=== PATIENT | female | born 1985 | race Caucasian/White ===

== ENCOUNTER 2020-06-04 20:55 | Observation (INO) | payer MEDICAID, SELFPAY ==
[~2020-06-04] VITALS: Ht 165.1 cm; Wt 50.4 kg
[2020-06-04 21:05] VITALS: BP 115/75
[2020-06-04] MEDS ORDERED: ZOFRAN IV STA (21:10)
[2020-06-04] MEDS ORDERED: TORADOL IV STA (21:10)
[2020-06-04] MEDS ORDERED: NS 1000ML 1,000 ML IV STA (21:10)
--- NOTE | 2020-06-04 21:14 | ER.PDOC ---
General Chief Complaint: Nausea,Vomiting,Diarrhea Stated Complaint: VOMITING Time seen by MD: 21:12 Source: patient Exam Limitations: no limitations History of Present Illness Initial Comments Abdominal pain since yesterday, nausea and vomiting this afternoon. No diarrhea, fever or chills. Pain is sharp and generalized. No radiation. She rates pain at a 7 out of 10. Severity/Quality: moderate, sharpness Abdominal Pain Onset Location: Generalized Abdomen Associated Symptoms (vomiting): mild vomiting Allergies: Coded Allergies: No Known Allergies (Unverified , 06/04/20) Vital Signs First Vital Signs Date Time Temp Pulse Resp B/P (MAP) Pulse Ox O2 Delivery O2 Flow Rate FiO2 06/04/20 21:05 98.6 64 16 06/04/20 21:05 100 06/04/20 21:05 115/75 (88) Room Air Last Vital Signs Date Time Temp Pulse Resp B/P (MAP) Pulse Ox O2 Delivery O2 Flow Rate FiO2 06/04/20 22:05 98.6 62 16 136/82 (100) 100 Room Air Past Medical History Medical History: fibromyalgia Surgical History: tubal Family History Significant Family History: no pertinent family hx Social History Alcohol Use: occassionally Drug Use: marijuana Constitutional: no symptoms reported EENTM: no symptoms reported Respiratory: no symptoms reported Cardiovascular: no symptoms reported Gastrointestinal: see HPI All Other Systems: Reviewed and Negative Physical Exam General Appearance: No Apparent Distress, WD/WN Neck: Non-Tender, Full Range of Motion, Supple, Normal Inspection Respiratory: chest non-tender, lungs clear, normal breath sounds, no respiratory distress, no accessory muscle use Cardiovascular: Normal Peripheral Pulses, Regular Rate, Rhythm, No Edema, No Gallop, No JVD, No Murmur Gastrointestinal: Normal Bowel Sounds, No Organomegaly, No Pulsatile Mass, Tenderness (generalized) Back: Normal Inspection, No CVA Tenderness, No Vertebral Tenderness Extremities: Normal Range of Motion, Non-Tender, Normal Inspection, No Pedal Edema, No Calf Tenderness, Normal Capillary Refill, Pelvis Stable 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, No Motor/Sensory Deficits, Alert, Normal Mood/Affect, Oriented x 3 Skin: Normal Color, Warm/Dry Lymphatic: No Adenopathy Results/Orders Results/Orders Orders - WILFRIDO WIN MD Cbc With Auto Diff (06/04/20 21:10) Comprehensive Metabolic Panel (06/04/20 21:10) Lipase (06/04/20 21:10) Urinalysis (06/04/20 21:10) Ct Abd/Pel With Iv Contrast (06/04/20 21:10) 0.9 % Sodium Chloride (Ns 1000ml) (06/04/20 21:10) Ondansetron Hcl/Pf (Zofran) (06/04/20 21:10) Ketorolac Tromethamine (Toradol) (06/04/20 21:10) Hcg Urine (06/04/20 21:10) 0.9 % Sodium Chloride (Ns 1000ml) (06/04/20 21:18) Ondansetron Hcl/Pf (Zofran) (06/04/20 21:18) Ketorolac Tromethamine (Toradol) (06/04/20 21:18) Morphine Sulfate (Morphine Sulfate) (06/04/20 21:22) Morphine Sulfate (Morphine Sulfate) (06/04/20 21:23) PT (06/04/20 22:46) Partial Thromboplastin Time. (06/04/20 22:46) Lactic Acid(Ml) (06/04/20 22:46) Blood Culture (06/04/20 22:46) Piperacillin Sodium/Tazobactam (Zosyn 3. (06/04/20 22:49) Vital Signs Date Time Temp Pulse Resp B/P (MAP) Pulse Ox O2 Delivery O2 Flow Rate FiO2 06/04/20 22:05 98.6 62 16 136/82 (100) 100 Room Air 06/04/20 21:05 98.6 64 16 115/75 (88) 100 Room Air 06/04/20 21:05 98.6 64 16 100 06/04/20 21:05 98.6 64 16 Administered Medications Medications (Trade) Dose Ordered Sig/Rafat Route PRN Reason Start Time Stop Time Status Last Admin Dose Admin Morphine Sulfate (Morphine Sulfate) 4 mg STAT STAT IV 06/04/20 21:22 06/04/20 21:23 DC 06/04/20 21:25 4 MG Ondansetron HCl (Zofran) 4 mg STAT STAT IV 06/04/20 21:10 06/04/20 21:13 DC 06/04/20 21:21 4 MG Sodium Chloride 1,000 ml @ 1,200 mls/hr Q50M STAT IV 06/04/20 21:10 06/04/20 21:59 DC 06/04/20 21:21 1,200 MLS/HR Laboratory Tests Test 06/04/20 21:05 White Blood Count 14.9 10^3/uL (4.5-11.0) H Red Blood Count 4.61 10^6/uL (4.00-5.20) Hemoglobin 14.7 g/dL (12.0-15.0) Hematocrit 42.0 % (36.0-46.0) Mean Corpuscular Volume 91.1 fL (78-100) Mean Corpuscular Hemoglobin 31.9 pg (26-34) Mean Corpuscular Hemoglobin Concent 35.0 g/dL (33-36.5) Red Cell Distribution Width 11.6 % (11.5-14.5) Platelet Count 238 10^3/uL (150-400) Mean Platelet Volume 10.2 fL (7.8-11.0) Neutrophils (%) (Auto) 80.6 % (41.0-85.0) Lymphocytes (%) (Auto) 12.8 % (24.0-44.0) L Monocytes (%) (Auto) 5.6 % (5.0-12.0) Neutrophils # (Auto) 12.0 10^3/uL (1.8-7.7) H Lymphocytes # (Auto) 1.91 10^3/uL1 (1.0-4.8) Monocytes # (Auto) 0.8 10^3/uL (0.3-0.8) Absolute Immature Granulocyte (auto 0.01 10^3 u/L (0-2) Absolute Eosinophils (auto) 0.1 10^3/uL (0.0-0.2) Immature Granulocytes % 0.10 % (0.00-0.50) Eosinophils % 0.5 % (0.0-5.0) Basophils % 0.4 % (0.0-0.2) H Basophils # 0.1 10^3/uL (0.0-0.1) Urine Collection Type RANDOM Urine Color YELLOW Urine Appearance HAZY Urine Bilirubin NEGATIVE (NEGATIVE) Urine Ketones 15 mg/dL (NEGATIVE) H Urine Specific [place] >=1.030 (1.005-1.030) Urine pH 5.5 (4.5-8.0) Urine Protein NEGATIVE (NEGATIVE) Urine Urobilinogen 0.2 E.U./dL (0.2) Urine Nitrate NEGATIVE (NEGATIVE) Urine Leukocyte Esterase NEGATIVE (NEGATIVE) Urine Glucose (Auto)(UA) NEGATIVE (NEGATIVE) Urine Blood NEGATIVE (NEGATIVE) Urine HCG, Qualitative NEGATIVE (NEGATIVE) Sodium Level 136 mmol/L (132-145) Potassium Level 3.7 mmol/L (3.6-5.2) Chloride Level 99.0 mmol/L (96-109) Carbon Dioxide Level 24.6 mmol/L (20.0-32) Anion Gap 16.1 Blood Urea Nitrogen 15 mg/dL (7-18) Creatinine 0.93 mg/dL (0.59-1.40) Estimated GFR () 84.0 (>/=60) Est GFR (CKD-EPI)(Non-Afr [place]an) 69.4 (>/=60) BUN/Creatinine Ratio 16.0 Glucose Level 98 mg/dL (70-110) Calcium Level 8.8 mg/dL (8.4-10.5) Total Bilirubin 0.9 mg/dL (0.2-1.0) Aspartate Amino Transferase (AST) 22 U/L (0-35) Alanine Aminotransferase (ALT) 21 U/L (12-78) Alkaline Phosphatase 44 U/L (50-136) L Total Protein 8.0 g/dL (6.4-8.2) Albumin 4.4 g/dL (3.4-5.0) Globulin 3.6 Albumin/Globulin Ratio 1.222 Lipase 155 U/L (114-286) Progress Progress CT abdomen/pelvis: Appendix is mildly dilated. In the appropriate clinical situation, this is consistent with appendicitis. 2. Moderate to large amount of stool in the colon. 3. Periportal edema which is nonspecific but can be seen in hepatitis or hypoalbuminemia as well as other conditions. No evidence of obstructive lymphatics. ER DEPART Departure Time of Disposition: 22:50 Disposition: ADMITTED INPATIENT Impression: Primary Impression: Acute appendicitis Condition: Stable Referrals: PCP,UNKNOWN (PCP) PRIMARY CARE PROVIDER Comments Admitted to Dr. Domínguez, Spoke with Dr. Ross who told me to admit patient under the hospitalist and he will take out the appendix in the morning. Duration or Time Spent with Pa: 60 min Problem Qualifiers Primary Impression: Acute appendicitis Acute appendicitis type: unspecified acute appendicitis type Qualified Codes: K35.80 - Unspecified acute appendicitis QUIRINO,WILFRIDO Brownlee MD Jun 04, 2020 21:14
[2020-06-04] MEDS ORDERED: NS 1000ML 1,000 ML ONE (21:18)
[2020-06-04] MEDS ORDERED: TORADOL ONE (21:18)
[2020-06-04] MEDS ORDERED: ZOFRAN ONE (21:18)
[2020-06-04] MEDS ORDERED: MORPHINE SULFATE IV STA (21:22)
[2020-06-04] MEDS ORDERED: MORPHINE SULFATE ONE (21:23)
[2020-06-04 21:26] LABS: BILIRUBIN,URINE NEGATIVE (NEGATIVE); UA COLOR YELLOW; UROBILINOGEN,URINE 0.2 E.U./dL (0.2)
[2020-06-04 21:32] LABS: BASOPHIL # 0.1 10^3/uL (0.0-0.1); BASOPHIL % 0.4 % (0.0-0.2); EOSINOPHIL # 0.1 10^3/uL (0.0-0.2); EOSINOPHIL % 0.5 % (0.0-5.0); LYMPHOCYTES # 1.91 10^3/uL1 (1.0-4.8); LYMPHOCYTES % 12.8 % (24.0-44.0); MEAN CORP HGB 31.9 pg (26-34); MONOCYTES # 0.8 10^3/uL (0.3-0.8); MONOCYTES % 5.6 % (5.0-12.0); NEUTROPHILS % 80.6 % (41.0-85.0); PLATELET COUNT 238 10^3/uL (150-400); RED CELL DISTRIBUTION WIDTH 11.6 % (11.5-14.5)
[2020-06-04 21:41] LABS: CALCIUM 8.8 mg/dL (8.4-10.5); CARBON DIOXIDE 24.6 mmol/L (20.0-32)
[2020-06-04 22:05] VITALS: BP 136/82
--- NOTE | 2020-06-04 22:28 | DIREP ---
PROCEDURE:CT ABD/PELVIS W/ CONTRAST TECHNIQUE:Following the intravenous administration of contrast material, venous phase cuts were obtained through the abdomen and pelvis. The images were viewed at lung and soft tissue settings. Sagittal and coronal reconstructions are provided. COMPARISON:None. INDICATIONS:Generalized abdominal pain FINDINGS: LOWER CHEST:The lung bases are clear. LIVER:There is periportal edema. BILIARY:Normal. PANCREAS:Normal. SPLEEN:Normal. URINARY TRACT:Normal. ADRENALS:Normal. AORTA/VASCULAR:Normal. RETROPERITONEUM:Normal. BOWEL/MESENTERY:The appendix is dilated measuring 8.6 mm diameter series [id number], image 41. Moderate to large amount of stool throughout the colon. No obstruction. Small bowel loops and stomach are normal in caliber. ABDOMINAL WALL:Normal. PELVIS:2 cm left corpus luteal cyst. BONES:Normal. OTHER:Normal. CONCLUSION: 1. Appendix is mildly dilated. In the appropriate clinical situation, this is consistent with appendicitis. 2. Moderate to large amount of stool in the colon. 3. Periportal edema which is nonspecific but can be seen in hepatitis or hypoalbuminemia as well as other conditions. No evidence of obstructive lymphatics. Dictated by: Daniel Rico M.D. on 06/04/2020 at 10:20 PM
[2020-06-04] MEDS ORDERED: ZOSYN 3.375 GM 3.375 GM in NS 100ML 100 ML IV STA (22:49)
[2020-06-04] MEDS ORDERED: NS 100ML 100 ML IV ONE (22:54)
[2020-06-04] MEDS ORDERED: ZOFRAN IV SCH (23:00)
[2020-06-04] MEDS ORDERED: D5W-1/2NS 1000ML 1,000 ML IV ONE (23:00)
[2020-06-04] MEDS: ZOSYN 3.375 GM 3.375 GM in NS 100ML 100 ML IV SCH (23:00)
[2020-06-04 23:09] VITALS: BP 116/77
--- NOTE | 2020-06-04 23:17 | NUR ---
ARRIVAL: PT ARRIVED FROM ER VIA WHEELCHAIR. REPORT RECEIVED FROM MADELYN AGUIAR RN. ASSUMED PT CARE. PT ABLE TO AMBULATE INDEPENDENTLY TO ICU BED. PT ORIENTED TO ICU ENVIRONMENT WITH UNDERSTANDING. ZOSYN INFUSING TO 20G IV SITE IN LT AC @ 100ML/HR. PT IS ON ROOM AIR. ALL VSS AND WNL. PT DENIES ANY NEEDS AT THIS TIME. CALL LIGHT AND TABLE WITHIN REACH/ WILL CONTINUE TO MONITOR.
--- NOTE | 2020-06-04 23:25 | PCM.HP ---
History of Present Illness Hx of Present Illness Ms. Márquez is a 35yoF with PMHx s/f fibromyalgia who presents with a 2 day history of abdominal pain focal to the RLQ with nausea. CT imaging revealed an inflamed appendix, and Dr. Ross will operate in the morning. For her part, the patient had been in her usual state of health prior to the onset of pain, and utilizes yoga to address her fibromyalgia symptoms. She has no other medical history and takes no other medications. Review of Systems Constitutional: No: Fever, Chills, Sweats, Weakness, Malaise Eyes: No: Conjunctivae inflammation, Eyelid inflammation ENT: No: Nose discharge, Nose congestion Respiratory: No: Cough, Dry, Shortness of breath, SOB with excertion, Wheezing Cardiovascular: No: Chest Pain, Palpitations, Orthopnea Gastrointestinal: Nausea, Abdominal Pain; No: Vomiting, Diarrhea, Constipation Genitourinary: No Dysuria, No Frequency, No Incontinence Musculoskeletal: back pain; No: neck pain, shoulder pain, arm pain Skin: No: Lesions, Jaundice Neurological: No: Weakness, Numbness, Incoordination, Change in speech, Confusion, Seizures Allergies: Coded Allergies: No Known Allergies (Unverified , 06/04/20) No Active Prescriptions or Reported Meds VTE VTE Risk Score VTE Risk: Score 0-1 = Low Risk (Aggressive mobilization; early ambulation; no VTE prophylaxis required) Score 2: Moderate Risk (Intermittent/Pneumatic Compression Device OR Lovenox/Heparin/Coumadin) Score 3-4: High Risk (Intermittent/Pneumatic Compression Device AND Lovenox/Heparin/Coumadin) Score > or =5: Highest Risk (Intermittent/Pneumatic Compression Device AND Lovenox/Heparin/Coumadin) Exam Vital Signs Vital Signs Date Time Temp Pulse Resp B/P (MAP) Pulse Ox O2 Delivery O2 Flow Rate FiO2 06/04/20 23:09 98.6 57 16 116/77 (90) 99 Room Air General Appearance: Alert, Oriented X3, Cooperative HEENT: Atraumatic, EOMI Respiratory: Clear to auscultation, Normal air movement Cardiovascular: Regular rate, Normal S1 Abdominal: Normal bowel sounds, Soft, Other (focal TTP at McBurney's point) Extremities: No clubbing, No cyanosis, No edema Skin: No rash, No breakdown, No lesions Neuro: Normal gait, Normal speech, Strength at 5/5 X4 ext Psych/Mental Status: Mental status NL, Mood NL Assessment/Plan Assessment/Plan Problems: (1) Acute appendicitis Status: Acute Assessment & Plan: started zosyn now, OR in am, NPO past midnight ICD Code: K35.80 - Unspecified acute appendicitis SNOMED: 04694332 (2) Fibromyalgia Status: Chronic Assessment & Plan: addressed with yoga and meditation ICD Code: M79.7 - Fibromyalgia SNOMED: 323066796 (3) Acute pain due to injury Status: Acute Assessment & Plan: Ofirmve 1gm q8h and morphine 4mg q3h IV ICD Code: G89.11 - Acute pain due to trauma SNOMED: 605499177 Problem Qualifiers (1) Acute appendicitis: Acute appendicitis type: unspecified acute appendicitis type Qualified Codes: K35.80 - Unspecified acute appendicitis XIOMARA LEA MD Jun 04, 2020 23:25
[2020-06-04] MEDS: OFIRMEV IV SCH (23:30)
[2020-06-04] MEDS ORDERED: MORPHINE SULFATE IV PRN (23:30)
--- NOTE | 2020-06-04 23:50 | NUR ---
OFIRMEV IV NON ADMIN DUE TO PT ALREADY TOOK 2500MG PO TYLENOL AT HOME TODAY.
--- NOTE | 2020-06-04 23:51 | NUR ---
VOID: PT AMBULATED TO USE TOILET IN HALLWAY INDEPENDENTLY. PT VOIDED 180ML OF YELLOW URINE. PT REPORTS RADIATING PAIN TO ABDOMINAL AREA BUT ABLE TO AMBULATE BACK TO BED WITHOUT ASSISTANCE. WILL CONTINUE TO MONITOR.
[2020-06-05] VITALS (13 sets, daily range): BP systolic 80–156; BP diastolic 47–94
[2020-06-05] MEDS: DILAUDID IV PRN ×7 (00:20→12:20)
[2020-06-05 04:20] LABS: BASOPHIL % 0.2 % (0.0-0.2); LYMPHOCYTES # 0.85 10^3/uL1 (1.0-4.8); LYMPHOCYTES % 4.9 % (24.0-44.0); MEAN CORP HGB 32.5 pg (26-34); MONOCYTES # 0.4 10^3/uL (0.3-0.8); MONOCYTES % 2.2 % (5.0-12.0); NEUTROPHIL # 16.2 10^3/uL (1.8-7.7); NEUTROPHILS % 92.5 % (41.0-85.0); PLATELET COUNT 185 10^3/uL (150-400); RED CELL DISTRIBUTION WIDTH 11.8 % (11.5-14.5)
[2020-06-05 04:29] LABS: CALCIUM 8.3 mg/dL (8.4-10.5); CARBON DIOXIDE 22.1 mmol/L (20.0-32)
[2020-06-05 04:56] LABS: LYMPHOCYTE 4 % (25-36); MONOCYTE 1 % (3-9); SEGMENTED NEUTROPHILS 95 % (31-76)
[2020-06-05] MEDS: ZOSYN 3.375 GM 3.375 GM in NS 100ML 100 ML IV SCH ×2 (05:00→10:50)
[2020-06-05] MEDS ORDERED: NS 100ML 100 ML IV ONE (05:07)
--- NOTE | 2020-06-05 06:54 | NUR ---
REPORT TO ONCOMING SHIFT. PT CARE RELINQUISHED.
[2020-06-05] MEDS ORDERED: ZOFRAN IV PRN ×2 (07:00→12:00)
--- NOTE | 2020-06-05 07:44 | PRM.PN ---
Subjective Subjective Date: Jun 05, 2020 Time: 07:30 Subjective Pain markedly improved VTE VTE Risk Total Score: 0 VTE Risk Score VTE Risk: Score 0-1 = Low Risk (Aggressive mobilization; early ambulation; no VTE prophylaxis required) Score 2: Moderate Risk (Intermittent/Pneumatic Compression Device OR Lovenox/Heparin/Coumadin) Score 3-4: High Risk (Intermittent/Pneumatic Compression Device AND Lovenox/Heparin/Coumadin) Score > or =5: Highest Risk (Intermittent/Pneumatic Compression Device AND Lovenox/Heparin/Coumadin) Review of Systems Constitutional: No: Fever, Chills, Sweats, Weakness, Malaise Eyes: No: Conjunctivae inflammation, Eyelid inflammation ENT: No: Nose discharge, Nose congestion Respiratory: No: Cough, Dry, Shortness of breath, SOB with excertion, Wheezing Cardiovascular: No: Chest Pain, Palpitations, Orthopnea Gastrointestinal: No: Nausea, Vomiting, Abdominal Pain, Diarrhea, Constipation Genitourinary: No Dysuria, No Frequency, No Incontinence Musculoskeletal: back pain; No: neck pain, shoulder pain, arm pain Skin: No: Lesions, Jaundice Neurological: No: Weakness, Numbness, Incoordination, Change in speech, Confusion, Seizures Allergies: Coded Allergies: No Known Allergies (Unverified , 06/04/20) No Active Prescriptions or Reported Meds Objective General: Alert, Oriented X3, Cooperative HEENT: Atraumatic, EOMI Lungs: Clear to auscultation, Normal air movement Heart: Regular rate, Normal S1 Abdomen: Normal bowel sounds, Soft, Other (focal TTP at McBurney's point) Extremities: No clubbing, No cyanosis, No edema Neuro: Normal gait, Normal speech, Strength at 5/5 X4 ext Psych/Mental Status: Mental status NL, Mood NL All Results(Lab/Rad) Laboratory Tests Test 06/04/20 21:05 06/04/20 22:55 06/05/20 04:03 06/05/20 04:27 White Blood Count 14.9 10^3/uL 17.5 10^3/uL Red Blood Count 4.61 10^6/uL 3.81 10^6/uL Hemoglobin 14.7 g/dL 12.4 g/dL Hematocrit 42.0 % 35.7 % Mean Corpuscular Volume 91.1 fL 93.7 fL Mean Corpuscular Hemoglobin 31.9 pg 32.5 pg Mean Corpuscular Hemoglobin Concent 35.0 g/dL 34.7 g/dL Red Cell Distribution Width 11.6 % 11.8 % Platelet Count 238 10^3/uL 185 10^3/uL Mean Platelet Volume 10.2 fL 10.2 fL Neutrophils (%) (Auto) 80.6 % 92.5 % Lymphocytes (%) (Auto) 12.8 % 4.9 % Monocytes (%) (Auto) 5.6 % 2.2 % Neutrophils # (Auto) 12.0 10^3/uL 16.2 10^3/uL Lymphocytes # (Auto) 1.91 10^3/uL1 0.85 10^3/uL1 Monocytes # (Auto) 0.8 10^3/uL 0.4 10^3/uL Absolute Immature Granulocyte (auto 0.01 10^3 u/L 0.03 10^3 u/L Absolute Eosinophils (auto) 0.1 10^3/uL 0.0 10^3/uL Immature Granulocytes % 0.10 % 0.20 % Eosinophils % 0.5 % 0.0 % Basophils % 0.4 % 0.2 % Basophils # 0.1 10^3/uL 0.0 10^3/uL Urine Collection Type RANDOM Urine Color YELLOW Urine Appearance HAZY Urine Bilirubin NEGATIVE Urine Ketones 15 mg/dL Urine Specific [place] >=1.030 Urine pH 5.5 Urine Protein NEGATIVE Urine Urobilinogen 0.2 E.U./dL Urine Nitrate NEGATIVE Urine Leukocyte Esterase NEGATIVE Urine Glucose (Auto)(UA) NEGATIVE Urine Blood NEGATIVE Urine HCG, Qualitative NEGATIVE Sodium Level 136 mmol/L 137 mmol/L Potassium Level 3.7 mmol/L 4.3 mmol/L Chloride Level 99.0 mmol/L 104.0 mmol/L Carbon Dioxide Level 24.6 mmol/L 22.1 mmol/L Anion Gap 16.1 15.2 Blood Urea Nitrogen 15 mg/dL 11 mg/dL Creatinine 0.93 mg/dL 0.84 mg/dL Estimated GFR () 84.0 94.5 Est GFR (CKD-EPI)(Non-Afr [place]ian) 69.4 78.1 BUN/Creatinine Ratio 16.0 13.0 Glucose Level 98 mg/dL 128 mg/dL Calcium Level 8.8 mg/dL 8.3 mg/dL Total Bilirubin 0.9 mg/dL Aspartate Amino Transf (AST/SGOT) 22 U/L Alanine Aminotransferase (ALT/SGPT) 21 U/L Alkaline Phosphatase 44 U/L Total Protein 8.0 g/dL Albumin 4.4 g/dL Globulin 3.6 Albumin/Globulin Ratio 1.222 Lipase 155 U/L Prothrombin Time 11.8 SEC Prothrombin Time INR (Non-Therap) 1.2 Activated Partial Thromboplast Time 24.7 SEC Lactic Acid Level 1.1 mmol/L Segmented Neutrophils 95 % Lymphocytes 4 % Monocytes 1 % Platelet Estimate ADEQUATE Platelet Morphology NORMAL Current Medications Medications (Trade) Dose Ordered Sig/Rafat Route PRN Reason Start Time Stop Time Status Last Admin Dose Admin Sodium Chloride 1,000 ml @ 1,200 mls/hr Q50M STAT IV 06/04/20 21:10 06/04/20 21:59 DC 06/04/20 21:21 Ondansetron HCl (Zofran) 4 mg STAT STAT IV 06/04/20 21:10 06/04/20 21:13 DC 06/04/20 21:21 Ketorolac Tromethamine (Toradol) 30 mg STAT STAT IV 06/04/20 21:10 06/04/20 21:22 DC Sodium Chloride 1,000 ml @ ud STK-MED ONCE .ROUTE 06/04/20 21:18 06/04/20 21:18 DC Ondansetron HCl (Zofran) 4 mg STK-MED ONCE .ROUTE 06/04/20 21:18 06/04/20 21:18 DC Ketorolac Tromethamine (Toradol) 30 mg STK-MED ONCE .ROUTE 06/04/20 21:18 06/04/20 21:18 DC Morphine Sulfate (Morphine Sulfate) 4 mg STAT STAT IV 06/04/20 21:22 06/04/20 21:23 DC 06/04/20 21:25 Morphine Sulfate (Morphine Sulfate) 4 mg STK-MED ONCE .ROUTE 06/04/20 21:23 06/04/20 21:23 DC Piperacillin Sod/ Tazobactam Sod 3.375 gm/Sodium Chloride 100 ml @ 100 mls/hr STAT STAT IV 06/04/20 22:49 06/04/20 23:48 DC 06/04/20 23:04 Ondansetron HCl (Zofran) 4 mg Q4H IV 06/04/20 23:00 06/05/20 06:32 DC 06/05/20 04:30 Piperacillin Sod/ Tazobactam Sod 3.375 gm/Sodium Chloride 100 ml @ 100 mls/hr Q6H IV 06/04/20 23:00 07/04/20 22:59 UNV 06/05/20 05:00 Hydromorphone HCl (Dilaudid) 0.5 mg Q3H PRN IV PAIN 7 - 10 06/04/20 23:00 07/04/20 22:59 06/05/20 04:30 Sodium Chloride 100 ml @ ud STK-MED ONCE IV 06/04/20 22:54 06/04/20 22:54 DC Acetaminophen (Ofirmev) 1,000 mg Q8H IV 06/04/20 23:30 07/04/20 23:29 Morphine Sulfate (Morphine Sulfate) 3 mg Q3HR PRN IV PAIN 7 - 10 06/04/20 23:30 07/04/20 23:29 06/05/20 02:35 Sodium Chloride 100 ml @ STK-MED ONCE IV 06/05/20 05:07 06/05/20 05:07 DC Ondansetron HCl (Zofran) 4 mg Q4H PRN IV NAUSEA / VOMITING 06/05/20 07:00 07/04/20 22:59 Course Sepsis Screening Results: Posi: NEGATIVE Sepsis Qualifier/Stage: NO DEFINITE RISK Duration or Total Time Spent w: 60 min Vitals & review Data Laboratory Tests Test 06/04/20 21:05 06/04/20 22:55 06/05/20 04:03 06/05/20 04:27 White Blood Count 14.9 10^3/uL 17.5 10^3/uL Red Blood Count 4.61 10^6/uL 3.81 10^6/uL Hemoglobin 14.7 g/dL 12.4 g/dL Hematocrit 42.0 % 35.7 % Mean Corpuscular Volume 91.1 fL 93.7 fL Mean Corpuscular Hemoglobin 31.9 pg 32.5 pg Mean Corpuscular Hemoglobin Concent 35.0 g/dL 34.7 g/dL Red Cell Distribution Width 11.6 % 11.8 % Platelet Count 238 10^3/uL 185 10^3/uL Mean Platelet Volume 10.2 fL 10.2 fL Neutrophils (%) (Auto) 80.6 % 92.5 % Lymphocytes (%) (Auto) 12.8 % 4.9 % Monocytes (%) (Auto) 5.6 % 2.2 % Neutrophils # (Auto) 12.0 10^3/uL 16.2 10^3/uL Lymphocytes # (Auto) 1.91 10^3/uL1 0.85 10^3/uL1 Monocytes # (Auto) 0.8 10^3/uL 0.4 10^3/uL Absolute Immature Granulocyte (auto 0.01 10^3 u/L 0.03 10^3 u/L Absolute Eosinophils (auto) 0.1 10^3/uL 0.0 10^3/uL Immature Granulocytes % 0.10 % 0.20 % Eosinophils % 0.5 % 0.0 % Basophils % 0.4 % 0.2 % Basophils # 0.1 10^3/uL 0.0 10^3/uL Urine Collection Type RANDOM Urine Color YELLOW Urine Appearance HAZY Urine Bilirubin NEGATIVE Urine Ketones 15 mg/dL Urine Specific [place] >=1.030 Urine pH 5.5 Urine Protein NEGATIVE Urine Urobilinogen 0.2 E.U./dL Urine Nitrate NEGATIVE Urine Leukocyte Esterase NEGATIVE Urine Glucose (Auto)(UA) NEGATIVE Urine Blood NEGATIVE Urine HCG, Qualitative NEGATIVE Sodium Level 136 mmol/L 137 mmol/L Potassium Level 3.7 mmol/L 4.3 mmol/L Chloride Level 99.0 mmol/L 104.0 mmol/L Carbon Dioxide Level 24.6 mmol/L 22.1 mmol/L Anion Gap 16.1 15.2 Blood Urea Nitrogen 15 mg/dL 11 mg/dL Creatinine 0.93 mg/dL 0.84 mg/dL Estimated GFR () 84.0 94.5 Est GFR (CKD-EPI)(Non-Afr [place]) 69.4 78.1 BUN/Creatinine Ratio 16.0 13.0 Glucose Level 98 mg/dL 128 mg/dL Calcium Level 8.8 mg/dL 8.3 mg/dL Total Bilirubin 0.9 mg/dL Aspartate Amino Transf (AST/SGOT) 22 U/L Alanine Aminotransferase (ALT/SGPT) 21 U/L Alkaline Phosphatase 44 U/L Total Protein 8.0 g/dL Albumin 4.4 g/dL Globulin 3.6 Albumin/Globulin Ratio 1.222 Lipase 155 U/L Prothrombin Time 11.8 SEC Prothrombin Time INR (Non-Therap) 1.2 Activated Partial Thromboplast Time 24.7 SEC Lactic Acid Level 1.1 mmol/L Segmented Neutrophils 95 % Lymphocytes 4 % Monocytes 1 % Platelet Estimate ADEQUATE Platelet Morphology NORMAL Current Medications Medications (Trade) Dose Ordered Sig/Rafat PRN Reason Start Time Stop Time Status Last Admin Acetaminophen (Ofirmev) 1,000 mg Q8H 06/04/20 23:30 07/04/20 23:29 Hydromorphone HCl (Dilaudid) 0.5 mg Q3H PRN PAIN 7 - 10 06/04/20 23:00 07/04/20 22:59 06/05/20 04:30 Morphine Sulfate (Morphine Sulfate) 3 mg Q3HR PRN PAIN 7 - 10 06/04/20 23:30 07/04/20 23:29 06/05/20 02:35 Ondansetron HCl (Zofran) 4 mg Q4H PRN NAUSEA / VOMITING 06/05/20 07:00 07/04/20 22:59 Piperacillin Sod/ Tazobactam Sod 3.375 gm/Sodium Chloride 100 ml @ 100 mls/hr Q6H 06/04/20 23:00 07/04/20 22:59 UNV 06/05/20 05:00 LEVEL 1 SEPSIS INFECTION CRITE: ABX Therapy, Abdominal Pain LEVEL 2-SIRS (LIST ALL THAT AP: WBC>[id number] O2 Sat by Pulse Oximetry: 98 Assessment/Plan Assessment/Plan Problems: (1) Acute pain due to injury Status: Acute Assessment & Plan: controlled on ofirmev and morphine 3mg q3h IV ICD Code: G89.11 - Acute pain due to trauma SNOMED: 749869789 (2) Fibromyalgia Status: Chronic Assessment & Plan: controlled at home on medication and yoga ICD Code: M79.7 - Fibromyalgia SNOMED: 706512097 (3) Acute appendicitis Status: Acute Assessment & Plan: c/w zosyn for now , pain markedly better on morphine, OR at ~0900 today ICD Code: K35.80 - Unspecified acute appendicitis SNOMED: 81709358 Problem Qualifiers (1) Acute appendicitis: Acute appendicitis type: unspecified acute appendicitis type Qualified Codes: K35.80 - Unspecified acute appendicitis XIOMARA LEA MD Jun 05, 2020 07:44
[2020-06-05] MEDS: OFIRMEV IV SCH ×2 (08:07→10:50)
--- NOTE | 2020-06-05 09:24 | PRM.CONS ---
CONSULTATION CONSULTATION Chief complaint Abdominal pain History of present illness 35-year-old female presents with approximately 1 day history of bilateral lower quadrant pain. Pain is described as a bandlike pain consistently across the lower quadrants. Pain has gotten better and is more intense now in the right lower quadrant. She reports having nausea and vomiting. No diarrhea. Describes the pain as being very intense and is rated as an 8 out of 10. Patient denies any fevers. Patient presented late last night to the emergency department secondary to the pain and as part of the overall work-up by the ER a CT scan was obtained revealing an appendix with the diameter greater than 8 cm. Thus very consistent with acute appendicitis. Patient was admitted last night with plans for surgery this morning. Past medical history Fibromyalgia, Crohn's Past surgical history Tubal ligation, bilateral inguinal hernia Medication See current med list Allergies No known drug Family/social history Father with diabetes Mother with Crohn's disease Positive for tobacco, social alcohol, occasional marijuana Review of systems General: Denies fevers chills or significant weight loss HEENT: Denies blurry vision, double vision, swallowing issues, hearing loss CVS: Denies heart attack, stroke, high blood pressure Lungs: Denies shortness of breath, or productive cough Abdomen: Positive for abdominal pain, nausea, vomiting, denies diarrhea or constipation Extremities: Denies abnormal movement, weakness, decreased sensation Psych: Denies anxiety or depression Blood: Denies hypercoagulable state or issues with inability to clot Physical exam Vitals See vitals in chart Labs See labs in chart Radiology Reviewed CT scan of abdomen pelvis General: Alert and oriented x3 no acute distress HEENT: Pupils equal round reactive to light, Extraocular muscles intact, neck supple, hearing intact CVS: Regular rate and rhythm Lungs: Clear to auscultation bilaterally Abdomen: Soft, lower abdominal tenderness greatest in the right lower quadrant, bowel sounds hypoactive Extremities: 2+ distal pulses Psych: Calm and lucid Assessment/plan 35-year-old female with acute appendicitis 1. Plan for laparoscopic appendectomy 2. Plan for possible discharge after procedure. DEVEN SILVEIRA MD Jun 05, 2020 09:24
[2020-06-05] MEDS ORDERED: NS 1000ML 1,000 ML ONE ×3 (09:40→12:15)
[2020-06-05] MEDS ORDERED: LIDOCAINE 2% VIAL ONE (09:48)
[2020-06-05] MEDS ORDERED: OFIRMEV 100 ML IV ONE (09:48)
[2020-06-05] MEDS ORDERED: ZOFRAN ONE (09:48)
[2020-06-05] MEDS ORDERED: NEOSTIGMINE ONE (09:48)
[2020-06-05] MEDS ORDERED: KETAMINE HCL-Non-Preferred ONE (09:49)
[2020-06-05] MEDS ORDERED: DILAUDID ONE ×2 (09:49→11:30)
[2020-06-05] MEDS ORDERED: DEXAMETHASONE 10 MG/ML VIAL ONE (09:49)
[2020-06-05] MEDS ORDERED: ROCURONIUM BROMIDE IV ONE (09:49)
[2020-06-05] MEDS ORDERED: VERSED ONE (09:50)
[2020-06-05] MEDS ORDERED: DIPRIVAN IV ONE (09:50)
[2020-06-05] MEDS ORDERED: SUBLIMAZE ONE ×2 (09:50→11:33)
[2020-06-05] MEDS ORDERED: SODIUM CHLORIDE IRR BAG IR ONE (09:51)
[2020-06-05] MEDS ORDERED: SODIUM CHLORIDE IRR BOTTLE IR ONE (09:52)
--- NOTE | 2020-06-05 09:55 | NUR ---
Transported to OR Pt presently leaving the unit for surgery.
[2020-06-05] MEDS ORDERED: ANCEF ONE (10:29)
[2020-06-05] MEDS ORDERED: CIPR500T86 PO (10:43)
[2020-06-05] MEDS ORDERED: METR500T PO (10:43)
--- NOTE | 2020-06-05 10:50 | PRM.DC ---
Discharge Summary Date of Discharge: Jun 05, 2020 Time of Request to Discharge: 16:00 Reason for Visit: Acute appendicitis Hospital Course Ms. Márquez is a pleasant 35-year-old female with past physical history significant only for fibromyalgia who presents with acute right lower quadrant pain which upon imaging was found to be secondary to acute appendicitis. The patient was started on IV antibiotics as well as IV narcotics, and underwent an uncomplicatedLaparoscopic appendectomy the following day. After recovering postoperatively, she was sent home with a 7-day course of Cipro/Flagyl, and will follow up in clinic with Dr. Ross. General: Alert, Oriented X3, Cooperative, No acute distress HEENT: Atraumatic, PERRLA, EOMI Neck: No JVD Heart: Regular rate, Normal S1, Normal S2 Abdomen: Normal bowel sounds, Soft, Other (mild appropriate TTP postop, dressings CDI) Extremities: No clubbing, No cyanosis, No edema Skin: No rashes, No breakdown Neuro: Normal gait, Normal speech, Strength at 5/5 X4 ext Psych/Mental Status: Mental status NL, Mood NL Scheduled Ciprofloxacin Hcl (Cipro), 500 MG PO BID Metronidazole (Flagyl), 500 MG PO TID Sepsis Evaluation @ Discharge Laboratory Tests Test 06/04/20 21:05 06/04/20 22:55 06/05/20 04:03 06/05/20 04:27 White Blood Count 14.9 10^3/uL 17.5 10^3/uL Red Blood Count 4.61 10^6/uL 3.81 10^6/uL Hemoglobin 14.7 g/dL 12.4 g/dL Hematocrit 42.0 % 35.7 % Mean Corpuscular Volume 91.1 fL 93.7 fL Mean Corpuscular Hemoglobin 31.9 pg 32.5 pg Mean Corpuscular Hemoglobin Concent 35.0 g/dL 34.7 g/dL Red Cell Distribution Width 11.6 % 11.8 % Platelet Count 238 10^3/uL 185 10^3/uL Mean Platelet Volume 10.2 fL 10.2 fL Neutrophils (%) (Auto) 80.6 % 92.5 % Lymphocytes (%) (Auto) 12.8 % 4.9 % Monocytes (%) (Auto) 5.6 % 2.2 % Neutrophils # (Auto) 12.0 10^3/uL 16.2 10^3/uL Lymphocytes # (Auto) 1.91 10^3/uL1 0.85 10^3/uL1 Monocytes # (Auto) 0.8 10^3/uL 0.4 10^3/uL Absolute Immature Granulocyte (auto 0.01 10^3 u/L 0.03 10^3 u/L Absolute Eosinophils (auto) 0.1 10^3/uL 0.0 10^3/uL Immature Granulocytes % 0.10 % 0.20 % Eosinophils % 0.5 % 0.0 % Basophils % 0.4 % 0.2 % Basophils # 0.1 10^3/uL 0.0 10^3/uL Urine Collection Type RANDOM Urine Color YELLOW Urine Appearance HAZY Urine Bilirubin NEGATIVE Urine Ketones 15 mg/dL Urine Specific [place] >=1.030 Urine pH 5.5 Urine Protein NEGATIVE Urine Urobilinogen 0.2 E.U./dL Urine Nitrate NEGATIVE Urine Leukocyte Esterase NEGATIVE Urine Glucose (Auto)(UA) NEGATIVE Urine Blood NEGATIVE Urine HCG, Qualitative NEGATIVE Sodium Level 136 mmol/L 137 mmol/L Potassium Level 3.7 mmol/L 4.3 mmol/L Chloride Level 99.0 mmol/L 104.0 mmol/L Carbon Dioxide Level 24.6 mmol/L 22.1 mmol/L Anion Gap 16.1 15.2 Blood Urea Nitrogen 15 mg/dL 11 mg/dL Creatinine 0.93 mg/dL 0.84 mg/dL Estimated GFR () 84.0 94.5 Est GFR (CKD-EPI)(Non-Afr British) 69.4 78.1 BUN/Creatinine Ratio 16.0 13.0 Glucose Level 98 mg/dL 128 mg/dL Calcium Level 8.8 mg/dL 8.3 mg/dL Total Bilirubin 0.9 mg/dL Aspartate Amino Transf (AST/SGOT) 22 U/L Alanine Aminotransferase (ALT/SGPT) 21 U/L Alkaline Phosphatase 44 U/L Total Protein 8.0 g/dL Albumin 4.4 g/dL Globulin 3.6 Albumin/Globulin Ratio 1.222 Lipase 155 U/L Prothrombin Time 11.8 SEC Prothrombin Time INR (Non-Therap) 1.2 Activated Partial Thromboplast Time 24.7 SEC Lactic Acid Level 1.1 mmol/L Segmented Neutrophils 95 % Lymphocytes 4 % Monocytes 1 % Platelet Estimate ADEQUATE Platelet Morphology NORMAL Current Medications Medications (Trade) Dose Ordered Sig/Rafat PRN Reason Start Time Stop Time Status Last Admin Acetaminophen (Ofirmev) 1,000 mg Q8H 06/04/20 23:30 07/04/20 23:29 Hydromorphone HCl (Dilaudid) 0.5 mg Q3H PRN PAIN 7 - 10 06/04/20 23:00 07/04/20 22:59 06/05/20 04:30 Morphine Sulfate (Morphine Sulfate) 3 mg Q3HR PRN PAIN 7 - 10 06/04/20 23:30 07/04/20 23:29 06/05/20 02:35 Ondansetron HCl (Zofran) 4 mg Q4H PRN NAUSEA / VOMITING 06/05/20 07:00 07/04/20 22:59 Piperacillin Sod/ Tazobactam Sod 3.375 gm/Sodium Chloride 100 ml @ 100 mls/hr Q6H 06/04/20 23:00 07/04/20 22:59 UNV 06/05/20 05:00 Course Sepsis Screening Results: Posi: NEGATIVE Sepsis Qualifier/Stage: NO DEFINITE RISK Duration or Total Time Spent w: 60 min Vitals & review Data Laboratory Tests Test 06/04/20 21:05 06/04/20 22:55 06/05/20 04:03 06/05/20 04:27 White Blood Count 14.9 10^3/uL 17.5 10^3/uL Red Blood Count 4.61 10^6/uL 3.81 10^6/uL Hemoglobin 14.7 g/dL 12.4 g/dL Hematocrit 42.0 % 35.7 % Mean Corpuscular Volume 91.1 fL 93.7 fL Mean Corpuscular Hemoglobin 31.9 pg 32.5 pg Mean Corpuscular Hemoglobin Concent 35.0 g/dL 34.7 g/dL Red Cell Distribution Width 11.6 % 11.8 % Platelet Count 238 10^3/uL 185 10^3/uL Mean Platelet Volume 10.2 fL 10.2 fL Neutrophils (%) (Auto) 80.6 % 92.5 % Lymphocytes (%) (Auto) 12.8 % 4.9 % Monocytes (%) (Auto) 5.6 % 2.2 % Neutrophils # (Auto) 12.0 10^3/uL 16.2 10^3/uL Lymphocytes # (Auto) 1.91 10^3/uL1 0.85 10^3/uL1 Monocytes # (Auto) 0.8 10^3/uL 0.4 10^3/uL Absolute Immature Granulocyte (auto 0.01 10^3 u/L 0.03 10^3 u/L Absolute Eosinophils (auto) 0.1 10^3/uL 0.0 10^3/uL Immature Granulocytes % 0.10 % 0.20 % Eosinophils % 0.5 % 0.0 % Basophils % 0.4 % 0.2 % Basophils # 0.1 10^3/uL 0.0 10^3/uL Urine Collection Type RANDOM Urine Color YELLOW Urine Appearance HAZY Urine Bilirubin NEGATIVE Urine Ketones 15 mg/dL Urine Specific [place] >=1.030 Urine pH 5.5 Urine Protein NEGATIVE Urine Urobilinogen 0.2 E.U./dL Urine Nitrate NEGATIVE Urine Leukocyte Esterase NEGATIVE Urine Glucose (Auto)(UA) NEGATIVE Urine Blood NEGATIVE Urine HCG, Qualitative NEGATIVE Sodium Level 136 mmol/L 137 mmol/L Potassium Level 3.7 mmol/L 4.3 mmol/L Chloride Level 99.0 mmol/L 104.0 mmol/L Carbon Dioxide Level 24.6 mmol/L 22.1 mmol/L Anion Gap 16.1 15.2 Blood Urea Nitrogen 15 mg/dL 11 mg/dL Creatinine 0.93 mg/dL 0.84 mg/dL Estimated GFR () 84.0 94.5 Est GFR (CKD-EPI)(Non-Afr British) 69.4 78.1 BUN/Creatinine Ratio 16.0 13.0 Glucose Level 98 mg/dL 128 mg/dL Calcium Level 8.8 mg/dL 8.3 mg/dL Total Bilirubin 0.9 mg/dL Aspartate Amino Transf (AST/SGOT) 22 U/L Alanine Aminotransferase (ALT/SGPT) 21 U/L Alkaline Phosphatase 44 U/L Total Protein 8.0 g/dL Albumin 4.4 g/dL Globulin 3.6 Albumin/Globulin Ratio 1.222 Lipase 155 U/L Prothrombin Time 11.8 SEC Prothrombin Time INR (Non-Therap) 1.2 Activated Partial Thromboplast Time 24.7 SEC Lactic Acid Level 1.1 mmol/L Segmented Neutrophils 95 % Lymphocytes 4 % Monocytes 1 % Platelet Estimate ADEQUATE Platelet Morphology NORMAL Current Medications Medications (Trade) Dose Ordered Sig/Rafat PRN Reason Start Time Stop Time Status Last Admin Acetaminophen (Ofirmev) 1,000 mg Q8H 06/04/20 23:30 07/04/20 23:29 Hydromorphone HCl (Dilaudid) 0.5 mg Q3H PRN PAIN 7 - 10 06/04/20 23:00 07/04/20 22:59 06/05/20 04:30 Morphine Sulfate (Morphine Sulfate) 3 mg Q3HR PRN PAIN 7 - 10 06/04/20 23:30 07/04/20 23:29 06/05/20 02:35 Ondansetron HCl (Zofran) 4 mg Q4H PRN NAUSEA / VOMITING 06/05/20 07:00 07/04/20 22:59 Piperacillin Sod/ Tazobactam Sod 3.375 gm/Sodium Chloride 100 ml @ 100 mls/hr Q6H 06/04/20 23:00 07/04/20 22:59 UNV 06/05/20 05:00 LEVEL 1 SEPSIS INFECTION CRITE: ABX Therapy, Abdominal Pain LEVEL 2-SIRS (LIST ALL THAT AP: [id number] O2 Sat by Pulse Oximetry: 98 Plan Problems: (1) Acute appendicitis Status: Acute ICD Code: K35.80 - Unspecified acute appendicitis SNOMED: [id number] Assessment & Plan: s/p lap appy, f/u with dr. Ross in clinic, 7 days cipro/flagyl Problem Qualifiers (1) Acute appendicitis: Acute appendicitis type: unspecified acute appendicitis type Qualified Codes: K35.80 - Unspecified acute appendicitis XIOMARA LEA MD Jun 05, 2020 10:50
[2020-06-05] MEDS ORDERED: SENSORCAINE 0.5% VIAL ONE (10:53)
--- NOTE | 2020-06-05 11:21 | PRM.OPH ---
Immediate Post Op Report Immediate Post Op Report Imediate Post Op Report Preop diagnosis Appendicitis Postoperative diagnose Same Procedure 1. Laparoscopic appendectomy 2. Bilateral tap block x2 Surgeon Dr. Ross Anesthesia General endotracheal Estimated blood 5 mL Specimen Appendix Complications None DEVEN ROSS MD Jun 05, 2020 11:21
--- NOTE | 2020-06-05 11:28 | PRM.OPH ---
OPERATIVE REPORT OPERATIVE REPORT Procedure Lap appendectomy Patient was initially seen and identified in the preoperative area. After confirming her identity, H&P, consents, and making sure that all her questions were answered patient was transferred from the preop area to the operating theater. Patient was then transferred from her stretcher to the operating room table placed in supine position given general anesthesia. Miller catheter was placed. Her abdomen was prepped with ChloraPrep and a sterile field was created in standard fashion. We began by making incision just lateral to the umbilicus. This was appropriate for a 5 mm trocar. We then inserted the Veress needle into the abdominal cavity insufflated to 15 mmHg then used the Roundbox system to place a 5 mm trocar into the abdominal cavity and confirmed there is no signs of any intra-abdominal injury. We then went ahead and placed 2 additional trochars 5 mm trocar 2 fingerbreadth above the pubic symphysis and to the left of midline then approximately 1 handsbreadth above this in the upper portion of the left upper quadrant an incision was made appropriate for a 12 mm trocar. Both of these were placed under direct visualization. Patient was then placed into a Trendelenburg position rotated to the left. We are able to identify the end of the cecum without difficulty. We are able to find the appendix lifted up make a small little defect using the [place] instrument at the base of the appendix. This allowed us to place the stapler a CLAUDIA 60 stapler with a blue load across the base the appendix taking a small portion of the cecum with it firing and amputating it. The mesoappendix was then taken down using the LigaSure. Any bleeding from the appendiceal base was dealt with using electrocautery. We made sure there is no signs of any bleeding from either the mesoappendix or from the base of the appendix. We also went ahead and examined the uterus and fallopian tubes to make sure there is no signs of a tubo-ovarian abscess. None was present. The appendix was placed into an Endo Catch bag and removed through the 12 mm trocar site. Then using the Serge Del Cid device we closed the 12 mm trocar site by passing a 0 Vicryl suture across the fascial defect and tying it. This was placed in a way that would create an airtight seal. Patient was then brought out of the reverse Trendelenburg position and rotation to the left the abdomen was deinsufflated and the trochars were removed. The skin was closed using 4-0 Monocryl sutures. At the end the case Dermabond was placed over the incisions after washing drying the abdomen. Tap block In the left upper quadrant we are able to find the lateral edge of the rectus muscle and where the oblique muscles began in the area where the neurovascular bundle is located. Under ultrasound guidance we placed a needle into this area injected 1 mL of saline confirm that were in the appropriate plane and a picture was taken. Then 12 .5 mLs of a mixture of half percent 30 mL Marcaine and 20 mL of Exparel were injected into the plane under ultrasound guidance. In the left left lower quadrant we are able to find the lateral edge of the rectus muscle and where the oblique muscles began in the area where the neurovascular bundle is located. Under ultrasound guidance we placed a needle into this area injected 1 mL of saline confirm that were in the appropriate sweta ne and a picture was taken. Then 12 .5 mLs of a mixture of half percent 30 mL Marcaine and 20 mL of Exparel were injected into the plane under ultrasound guidance. In the right lower quadrant we are able to find the lateral edge of the rectus muscle and where the oblique muscles began in the area where the neurovascular bundle is located. Under ultrasound guidance we placed a needle into this area injected 1 mL of saline confirm that were in the appropriate plane and a picture was taken. Then 12 .5 mLs of a mixture of half percent 30 mL Marcaine and 20 mL of Exparel were injected into the plane under ultrasound guidance. In the right upper quadrant we are able to find the lateral edge of the rectus muscle and where the oblique muscles began in the area where the neurovascular bundle is located. Under ultrasound guidance we placed a needle into this area injected 1 mL of saline confirm that were in the appropriate plane and a picture was taken. Then 12 .5 mLs of a mixture of half percent 30 mL Marcaine and 20 mL of Exparel were injected into the plane under ultrasound guidance. After which time patient was handed back over to anesthesia to be awoken from general anesthesia transferred back to her stretcher and escorted to the PACU for further recovery. The Miller catheter was also removed. The patient tolerated the procedure well. DEVEN SILVEIRA MD Jun 05, 2020 11:28
[2020-06-05] MEDS ORDERED: SUBLIMAZE IV PRN (12:00)
[2020-06-05] MEDS ORDERED: VENTOLIN IH PRN (12:00)
[2020-06-05] MEDS ORDERED: EXPAREL 266 MG/20 ML VIAL IJ ONE (12:00)
[2020-06-05] MEDS ORDERED: EPHEDRINE SULFATE IV PRN (12:00)
--- NOTE | 2020-06-05 12:36 | NUR ---
Pt back from surgery, incision site WDL, pt c/o pain of 5/10 and states that is tolerable for her. No other complains at this time will continue to monitor.
--- NOTE | 2020-06-05 14:57 | NUR ---
Pt Ambulated Pt ambulated to the unit, tolerated well with no discomfort noted. Waiting on pt to void before DC. Will continue to closely monitor.
--- NOTE | 2020-06-05 17:55 | NUR ---
Discharged Pt safely discharged, all IV taken out. Pt safely transported to ride downstairs. No concern at time of DC.
== END 2020-06-05 17:35 | disposition home or self-care (01) ==
LOC: ER 20:55 → ICU 22:49
PROVIDERS: ADMIT Surgery; ATTEND Surgery
DX: K35.80 Unspecified acute appendicitis (principal); R11.2 Nausea with vomiting, unspecified; M79.7 Fibromyalgia; G89.11 Acute pain due to trauma; K50.90 Crohn's disease, unspecified, without complications; F12.90 Cannabis use, unspecified, uncomplicated; Z79.899 Other long term (current) drug therapy
CPT/HCPCS: 36415 ×2; 44970; 64486; 74177; 80048; 80053; 81003; 81025; 83605; 83690; 85025 ×2; 85610; 85730; 87040 ×2; 88302; 96361; 96365; 96375 ×2; 96376 ×2; 99285; A4217; G0378 ×17; J0131; J0690; J1100; J1170 ×4; J1885; J2001; J2250; J2270 ×2; J2405 ×4; J2543 ×2; J2710; J3010 ×2; J3490 ×2; J7030 ×4; J7050 ×4; Q9965; C9290

== ENCOUNTER → 2021-01-18 | Outpatient (CLI) | payer MEDICAID ==
[~2021-01-18] MED LIST: CIPR500T86 PO; METR500T PO
== END | disposition home or self-care (01) ==
LOC: NPLAB 11:43
PROVIDERS: ATTEND Nurse Practitioner Family
DX: Z11.52 Encounter for screening for COVID-19 (principal); U07.1 COVID-19
CPT/HCPCS: 87426

== ENCOUNTER → 2021-03-07 | Outpatient (CLI) | payer OTHER ==
--- NOTE | 2021-03-07 15:59 | DIREP ---
PROCEDURE:XRAY SINUSES PARANASAL<3 VWS COMPARISON:None. INDICATIONS:J32.1 CHRONIC FRONTAL SINUSITIS TECHNIQUE: PA, Odom, and lateral views of the sinuses are provided. FINDINGS: MAXILLARY:Normal. No mucosal thickening or fluid level. ETHMOID:Normal. No mucosal thickening or fluid level. FRONTAL:Normal. No mucosal thickening or fluid level. SPHENOID:Normal. No mucosal thickening or fluid level. OTHER:Negative. CONCLUSION:Normal examination. Dictated by: Arthur Silva M.D. on 03/07/2021 at 03:56 PM
== END | disposition home or self-care (01) ==
LOC: RAD 15:02
PROVIDERS: ATTEND Nurse Practitioner Family
DX: J32.1 Chronic frontal sinusitis (principal)
CPT/HCPCS: 70220

== ENCOUNTER → 2021-10-18 | Outpatient (CLI) | payer OTHER | END | disposition home or self-care (01) | DRG 951 | LOC: NPLAB 10:24 | PROVIDERS: ATTEND Nurse Practitioner Women's Health | DX: Z13.89 Encounter for screening for other disorder (principal) | CPT/HCPCS: 36415; 86592; 86803 ==